=== PATIENT | female | born 2005 | race Two or more races ===

== ENCOUNTER 2024-07-07 13:46 | Emergency (ER) | payer MEDICAID ==
[~2024-07-07] VITALS: Ht 160 cm; Wt 53.1 kg
[2024-07-07 13:53] VITALS: BP 98/53; PULSE 73; RESP 18; O2SAT 99
--- NOTE | 2024-07-07 13:56 | Physician Documentation ---
HPI ~ General Chief Complaint: Tooth Problem Stated Complaint: TOOTH PAIN Time Seen by MD: 13:55 OK to notify your PCP?: Yes Source: patient, RN/MD, RN notes reviewed, old records Mode of Arrival: POV Exam Limitations: no limitations History of Present Illness HPI Comment 19 year old female presents to the emergency department for complaints of a tooth issue that has been intermittent for one month. She states that she has a dentist but has not had insurance. She states that it is the lower left molar that is in pain. Patient denies any other associated symptoms at this time. Patient denies any other alleviating or exacerbating factors. Medication Reconciliation Allergies: Coded Allergies: No Known Allergies (Unverified , 07/07/24) Scheduled Amox Tr/Potassium Clavulanate 875/125 MG (Augmentin 875/125 MG), 1 TAB PO Q12H Scheduled PRN Hydrocodone Bit/Acetaminophen 5/325 MG ([place]orn[place] 5/325 MG), 1 TAB PO Q12H PRN PRN for pain Past Medical History Past Medical History: No Pertinent History Review of Systems All Other Systems at this time: Reviewed and Negative ROS As stated above in the HPI, otherwise all systems are reviewed and negative. Physical Exam Vital Signs: RN Vital Signs have been reviewed: Yes, Temperature: 97.9, Source: Temporal, Heart Rate: 73, Respiratory Rate: 18, BP: 98/53, Pulse Oximetry: 99, Weight: 53.150 Oxygen Flow Rate: 0 Pulse Oximetry Reflects: adequate oxygenation Physical Exam General: The patient is well developed, well nourished, nontoxic appearing and is in no acute distress. Skin: [place], warm and dry with no rashes. HEENT: Dental caries on lower left molar, gumline within normal limits. Head was normocephalic and atraumatic. Eyes - pupils equal, round, reactive to light and accommodation. Extraocular movements were intact. Conjunctivae were nonicteric. Ears - bilateral tympanic membranes were normal. The mouth and oropharynx were clear with moist mucous membranes. There were no pharyngeal exudates or erythema. Neck: Supple and nontender. There was no jugular venous distention, lymphadenopathy, thyromegaly or masses. Chest: Clear to auscultation bilaterally without wheezes, rales or rhonchi. No accessory muscle use. No dullness to percussion. Heart: Rate regular and rhythmic. S1, S2. No murmurs. Palpation of the chest wall was normal. No rubs or thrills. Abdomen: Soft, nontender and nondistended. Positive bowel sounds. No guarding or rebound. No hepatosplenomegaly or palpable masses. Extremities: No cyanosis, clubbing or edema. The patient moves all extremities. Pulses were equal and symmetric. Neurologic: Cranial nerves II-XII were intact. Sensation was intact to light touch throughout. Motor strength was 5/5 in all four extremities. Deep tendon reflexes were intact in both upper and lower extremities. Psychologic: The patient was oriented to person, place and time. The patient demonstrated appropriate judgement and insight. Progress Results/Orders Reviewed/noted all lab results: Yes Results/Orders Vital Signs 07/07/24 07/07/24 13:53 14:41 Temp 97.9 97.9 Pulse 73 Resp 18 B/P (MAP) 98/53 Pulse Ox 99 O2 Flow Rate 0 Re-Evaluation Re-Evaluation : Re-Evaluation: Improved Progress Patient was prescribed antibiotics was no signs of abscess or soft tissue cellulitis. She was given reassurance and discharged home. Medical Decision Making Additional info obtained from: old records Differential Dx:Considerations: Include: Alveolar fracture, Alveolar osteitis, Facial Cellulitis, Periapical abscess, Peridontal abscess, Post-extraction bleeding, Pulpitis, Tooth avulsion, Tooth eruption, Trigeminal neuralgia, Tooth subluxation, Other Departure Disposition: 01 HOME / SELF CARE / HOMELESS Impression: Primary Impression: Dental caries Condition: Stable Discharge Instructions: Dental Caries, Adult Referrals: NO PRIMARY CARE PROVIDER (PCP) Prescriptions Hydrocodone Bit/Acetaminophen 5/325 MG ([place] 5/325 MG) 5 Mg/325 Mg Tablet 1 TAB PO Q12H PRN PRN for pain for 5 Days, #10 TAB Prov: SERGIO FLORES MD 07/07/24 Amox Tr/Potassium Clavulanate 875/125 MG (Augmentin 875/125 MG) 875 Mg-125 Mg Tablet 1 TAB PO Q12H for 14 Days, #28 TAB 1 Refill Prov: SERGIO FLORES MD 07/07/24 Education Educated: Patient Educated regarding: diagnosis, prognosis, need for follow up Signature Scribe Signature: Scribed for Sergio Flores MD by Roshan Blair . 07/07/24 14:06 Attestation: The note accurately reflects work and decisions made by me.Sergio Flores MD 07/07/24 13:56 SERGIO FLORES MD Jul 07, 2024 13:56 ROSHAN GALE Jul 07, 2024 14:06
[2024-07-07] MEDS ORDERED: AMOX-580 PO (14:03)
[2024-07-07] MEDS ORDERED: HYDR-3965 PO (14:04)
[2024-07-07 14:41] VITALS: TEMP 97.9
== END 2024-07-07 14:43 | disposition home or self-care (01) ==
LOC: ER 13:47
DX: K02.9 Dental caries, unspecified (principal)
CPT/HCPCS: 99283